=== PATIENT | male | born 1955 | race Caucasian/White ===

== ENCOUNTER 2019-11-24 01:50 | Inpatient (IN) | payer OTHER ==
[~2019-11-24] VITALS: Ht 175.3 cm; Wt 82.0 kg
--- NOTE | 2019-11-24 02:27 | NUR ---
Pt presents to room reporting onset of left lumbar pain tonight. Pt denies injury prior to the pain. Pt reports taking a total of 600 mg Ibuprofen for the pain tonight. Pt denies the pain radiating anywhere. Pt reports nausea or shakes with the pain. Pt denies numbness, weakness, or tingling to his extremities. Pt denies loss of bowel or bladder control with the pain.
[2019-11-24] MEDS ORDERED: DIAZEPAM 5 MG TABLET ONE (02:59)
[2019-11-24] MEDS ORDERED: OXYcodone/APAP 5/325MG TABLET ONE (02:59)
[2019-11-24] MEDS ORDERED: KETOROLAC 30 MG/1 ML ONE (02:59)
[2019-11-24] MEDS ORDERED: KETOROLAC 30 MG/1 ML IM ONE (03:00)
[2019-11-24] MEDS ORDERED: DIAZEPAM 5 MG TABLET PO ONE (03:00)
[2019-11-24] MEDS ORDERED: OXYcodone/APAP 5/325MG TABLET PO ONE (03:00)
[2019-11-24 03:25] LABS: BASOPHILS # (AUTO) 0.03 x10^3/uL (0-0.1); BASOPHILS % (AUTO) 0 % (0-1); EOSINOPHILS # (AUTO) 0.03 x10^3/uL (0-0.4); EOSINOPHILS % (AUTO) 0 % (1-7); LYMPHOCYTES # (AUTO) 0.97 x10^3/uL (1-3.4); LYMPHOCYTES % (AUTO) 10 % (22-44); MD NO; MEAN CORPUSCULAR HEMOGLOBIN 27.7 pg (27.5-34.5); MEAN CORPUSCULAR HGB CONC 33.6 g/dL (33.2-36.2); MEAN CORPUSCULAR VOLUME 82.4 fL (81-97); MEAN PLATELET VOLUME 7.1 fL (7.4-10.4); MONOCYTES # (AUTO) 0.79 x10^3/uL (0.2-0.8); MONOCYTES % (AUTO) 8 % (2-9); NEUTROPHILS % (AUTO) 81 % (42-75); PLATELET COUNT 392 x10^3/uL (130-400); RED BLOOD COUNT 4.39 x10^6/uL (4.38-5.82); RED CELL DISTRIBUTION WIDTH 14.1 % (9.4-14.8)
[2019-11-24 03:41] LABS: ALANINE AMINOTRANSFERASE 20 U/L (12-78); ALBUMIN 3.1 g/dL (3.4-5.0); ANION GAP 5 mmol/L (5-15); CALCIUM 9.4 mg/dL (8.5-10.1); CHLORIDE 103 mmol/L (98-107)
[2019-11-24 03:42] LABS: MICROSCOPIC AUTO
[2019-11-24 03:43] LABS: CULTURE INDICATED? YES
[2019-11-24 03:44] LABS: ALKALINE PHOSPHATASE 89 U/L (45-117); BILIRUBIN,TOTAL 0.3 mg/dL (0.2-1.0); CREATININE 2.22 mg/dL (0.7-1.3); TOTAL PROTEIN 8.1 g/dL (6.4-8.2)
[2019-11-24] MEDS ORDERED: DILTIAZEM 5 MG/ML, 5ML ONE (04:01)
--- NOTE | 2019-11-24 04:37 | NUR ---
Pt reports pain has improved to 0/10 after meds.
--- NOTE | 2019-11-24 07:00 | NUR ---
Recieved report from KAYKAY Ferrer. Patient denies pain. Resting in bed with lights off. Call light within reach.
[2019-11-24] MEDS: HEPARIN 5,000 UNITS/ML, 1ML SQ SCH ×2 (07:30→22:43)
[2019-11-24] MEDS ORDERED: ACETAMINOPHEN 325 MG TABLET PO PRN (07:30)
[2019-11-24] MEDS ORDERED: KETOROLAC 30 MG/1 ML IV PRN (07:30)
[2019-11-24] MEDS ORDERED: ONDANSETRON ODT 4 MG PO PRN (07:30)
[2019-11-24] MEDS ORDERED: ONDANSETRON 2MG/ML, 2ML IVPush PRN (07:30)
--- NOTE | 2019-11-24 07:37 | NUR ---
SPOKE WITH DR. LYON. SX POSSIBLE AT 1130 OR LATER [facility]. PT TO BE NPO UNTIL SX TODAY.
--- NOTE | 2019-11-24 09:49 | NUR ---
RECEIVED REPORT FROM ARASH RN'S TO ASSUME CARE OF PT. IFV STARTED PER ORDER. PT. DENIES PAIN AT THIS TIME. PT. AWARE OF NPO STATUS R/T PROBABLE SX AT 1130 THIS AM. DENIES NEEDS. ALL SAFETY MEASURES OBERVED.
[2019-11-24] MEDS: SODIUM CHLORIDE 0.9% 1,000 ML IV SCH (09:51)
--- NOTE | 2019-11-24 10:07 | NUR ---
REPORT TO KAYKAY VENTURA FOR OR.
[2019-11-24] MEDS ORDERED: ACETAMINOPHEN 500 MG TABLET ONE (10:35)
[2019-11-24] MEDS ORDERED: MIDAZOLAM 1 MG/ML, 2ML ONE (10:44)
[2019-11-24] MEDS ORDERED: FENTANYL PF 250 MCG/5ML ONE (10:44)
[2019-11-24] MEDS ORDERED: ROCURONIUM 10MG/ML,5ML ONE (10:45)
[2019-11-24] MEDS ORDERED: LIDOCAINE-MPF 2% ,5ML ONE (10:46)
[2019-11-24] MEDS ORDERED: PROPOFOL 10 MG/ML, 20ML ONE (10:46)
[2019-11-24] MEDS ORDERED: SUCCINYLCHOLINE 20 MG/ML, 10ML ONE (10:48)
[2019-11-24] MEDS ORDERED: ACETAMINOPHEN 500 MG TABLET PO ONE (11:00)
[2019-11-24] MEDS ORDERED: ONDANSETRON 2MG/ML, 2ML ONE (11:07)
[2019-11-24] MEDS ORDERED: DEXAMETHASONE 4 MG/ML, 1ML ONE (11:07)
[2019-11-24] MEDS ORDERED: MIDAZOLAM 1 MG/ML, 2ML IV PRN (12:00)
[2019-11-24] MEDS ORDERED: MEPERIDINE/PF 25MG/ML,1ML IVPush PRN (12:00)
[2019-11-24] MEDS ORDERED: PROMETHAZINE 12.5 MG SUPP PR PRN (12:00)
[2019-11-24] MEDS ORDERED: ONDANSETRON ODT 8 MG PO PRN (12:00)
[2019-11-24] MEDS ORDERED: DIAZEPAM 5 MG/ML, 2ML IVPush PRN (12:00)
[2019-11-24] MEDS ORDERED: LABETALOL 5MG/ML, 20ML IV PRN (12:00)
[2019-11-24] MEDS ORDERED: PROMETHAZINE 25 MG/ML, 1ML IV PRN (12:00)
[2019-11-24] MEDS ORDERED: hydrALAzine 20 MG/ML, 1ML IV PRN (12:00)
[2019-11-24] MEDS ORDERED: ALBUTEROL SULFATE 2.5 MG/3 ML NPPB PRN (12:00)
[2019-11-24] MEDS ORDERED: OXYcodone 5 MG/5 ML ORAL.SOL UDC PO PRN (12:00)
[2019-11-24] MEDS ORDERED: HYDROmorphone 2 MG/ML, 1ML IVPush PRN (12:00)
[2019-11-24] MEDS ORDERED: ONDANSETRON 2MG/ML, 2ML IV PRN (12:00)
[2019-11-24] MEDS ORDERED: FENTANYL PF 100 MCG/2ML IV PRN (12:00)
[2019-11-24] MEDS ORDERED: EPHEDRINE 50 MG/ML, 1ML IVPush PRN (12:00)
[2019-11-24] MEDS ORDERED: HALOPERIDOL 5 MG/ML IV PRN (12:00)
[2019-11-24] MEDS ORDERED: OXYcodone 5 MG/5 ML ORAL.SOL UDC ONE (12:27)
[2019-11-24] MEDS ORDERED: CALCIUM CARBONATE 500 MG TAB.CHEW PO PRN (16:00)
[2019-11-24 19:03] VITALS: BP 118/65
[2019-11-24] MEDS ORDERED: OPIUM/BELLADONNA SUPP.RECT 16.2-60 MG PR PRN (19:30)
[2019-11-24] MEDS ORDERED: OXYcodone IR 5MG TABLET PO PRN (19:30)
[2019-11-24] MEDS ORDERED: OXYcodone IR 5MG TABLET ONE (19:39)
[2019-11-24] MEDS ORDERED: MORPHINE SULFATE 4 MG/ML, 1ML ONE (21:01)
[2019-11-24] MEDS: morphine SULFATE 10 MG/ML, 1ML IVPush PRN ×3 (21:10→21:48)
[2019-11-25 00:36] VITALS: BP 102/64
[2019-11-25] MEDS: SODIUM CHLORIDE 0.9% 1,000 ML IV SCH (00:57)
[2019-11-25 05:47] LABS: ANION GAP 6 mmol/L (5-15); CALCIUM 8.6 mg/dL (8.5-10.1); CHLORIDE 104 mmol/L (98-107)
[2019-11-25 05:48] LABS: CREATININE 2.03 mg/dL (0.7-1.3)
[2019-11-25 05:51] LABS: BASOPHILS # (AUTO) 0.03 x10^3/uL (0-0.1); BASOPHILS % (AUTO) 0 % (0-1); EOSINOPHILS % (AUTO) 0 % (1-7); LYMPHOCYTES # (AUTO) 1.66 x10^3/uL (1-3.4); LYMPHOCYTES % (AUTO) 14 % (22-44); MD NO; MEAN CORPUSCULAR HEMOGLOBIN 27.8 pg (27.5-34.5); MEAN CORPUSCULAR HGB CONC 33.5 g/dL (33.2-36.2); MEAN PLATELET VOLUME 7.6 fL (7.4-10.4); MONOCYTES # (AUTO) 0.77 x10^3/uL (0.2-0.8); MONOCYTES % (AUTO) 7 % (2-9); NEUTROPHILS # (AUTO) 9.15 x10^3/uL (1.8-6.8); NEUTROPHILS % (AUTO) 79 % (42-75); PLATELET COUNT 347 x10^3/uL (130-400); RED BLOOD COUNT 3.98 x10^6/uL (4.38-5.82); RED CELL DISTRIBUTION WIDTH 14.1 % (9.4-14.8)
[2019-11-25] MEDS: HEPARIN 5,000 UNITS/ML, 1ML SQ SCH (06:42)
[2019-11-25 06:48] VITALS: BP 122/69
[2019-11-25] MEDS ORDERED: ACET325T26 PO (11:12)
[2019-11-25 12:04] VITALS: BP 111/68
[2019-11-25 13:22] VITALS: BP 123/81
[2019-11-26] MEDS ORDERED: SODIUM CHLORIDE 0.9% 1,000 ML IV SCH (07:09)
== END 2019-11-25 15:20 | disposition home or self-care (01) | DRG 669 ==
LOC: ED 05:48 → EDIP 06:32 → 4NE 14:11
PROVIDERS: ADMIT Internal Medicine; ATTEND Internal Medicine
PROC: 0TC78ZZ Extirpation of Matter from Left Ureter, Via Natural or Artificial Opening Endoscopic (ICD-10-PCS; principal; 2019-11-24 11:00)
DX: N13.2 Hydronephrosis with renal and ureteral calculous obstruction (principal); E87.1 Hypo-osmolality and hyponatremia; M62.82 Rhabdomyolysis; N17.9 Acute kidney failure, unspecified; D64.9 Anemia, unspecified; I10 Essential (primary) hypertension; N28.82 Megaloureter; Z88.6 Allergy status to analgesic agent
CPT/HCPCS: 36415; 74018; 76000; J3490; 74176; 80048; 80053; 81001; 85025; 87086; 93005; 96372; 99285; G0378; J1100; J1644; J1885; J2250; J2405; J2704; J3010; Q0162; C1758; C1769; J0330; J2270; J7030